=== PATIENT | female | born 1940 | race Two or more races ===

== ENCOUNTER 2018-01-02 11:13 | Emergency (ER) | payer OTHER ==
[~2018-01-02] VITALS: Ht 160 cm; Wt 59.0 kg
[2018-01-02] MEDS ORDERED: PLAVIX75 MG (11:50)
[2018-01-02] MEDS ORDERED: TOPROL XL25 MG (11:50)
[2018-01-02] MEDS ORDERED: FENOFIBRATE160 MG (11:51)
[2018-01-02] MEDS ORDERED: NITROGLYCERIN2.5 MG (11:51)
[2018-01-02] MEDS ORDERED: JARDIANCE10 MG (11:52)
[2018-01-02] MEDS ORDERED: LIPITOR40 MG (11:52)
[2018-01-02] MEDS ORDERED: JANUMET XR 50-1 EAC1 (11:52)
[2018-01-02] MEDS ORDERED: HUMALOG MI100 UNIT/1 (11:52)
== END 2018-01-02 14:19 | disposition home or self-care (01) ==
LOC: ER 11:13
DX: S05.11XA Contusion of eyeball and orbital tissues, right eye, initial encounter (principal); W18.09XA Striking against other object with subsequent fall, initial encounter; Y93.89 Activity, other specified; Y92.488 Other paved roadways as the place of occurrence of the external cause; Y99.8 Other external cause status

== ENCOUNTER 2018-01-21 11:04 | Emergency (ER) | payer OTHER ==
[~2018-01-21] VITALS: Ht 160 cm; Wt 57.2 kg
[~2018-01-21 11:04] MED LIST: FENOFIBRATE160 MG; HUMALOG MI100 UNIT/1; JANUMET XR 50-1 EAC1; JARDIANCE10 MG; LIPITOR40 MG; NITROGLYCERIN2.5 MG; PLAVIX75 MG; TOPROL XL25 MG
[2018-01-21] MEDS ORDERED: JANUVIA100 MG PO (11:48)
== END 2018-01-21 14:33 | disposition home or self-care (01) ==
LOC: ER 11:04
DX: S51.012A Laceration without foreign body of left elbow, initial encounter (principal); S00.83XA Contusion of other part of head, initial encounter; S39.82XA Other specified injuries of lower back, initial encounter; M54.5 Low back pain; W18.09XA Striking against other object with subsequent fall, initial encounter; Y93.89 Activity, other specified; Y92.018 Other place in single-family (private) house as the place of occurrence of the external cause; Y99.8 Other external cause status